=== PATIENT | male | born 1940 | race African-American/Black ===

== ENCOUNTER → 2016-06-11 | Day surgery (SDC) | payer MEDICARE, OTHER ==
[2016-02-05 11:00] VITALS: BP 141/80
[~2016-06-11] VITALS: Ht 182.9 cm; Wt 48.5 kg
[~2016-06-11] MED LIST: ALPR1TAB6 PO; AMIT25TA PO; AMOX1TAB61 PO; ASCO500C PO; ASPI-482 PO; ASPI325T4 PO; ATOR40TA59 PO; BUME2TAB PO; Bumetanide PO; CAPT12.52 PO; CARV3.12 PO; CARV6.25 PO; CARV6.252 PO; CLOP75TA27 PO; COLL30OI TP; FERR-26 PO; FURO20TA3 PO; GABA300C8 PO; HYDR-2666 PO; HYDROmorphone 2 MG/ML VIAL IV PRN; IPRA3AMP NEB; IV RINGERS,LACTATED 1000ML 1,000 ML IV SCH; LACT-128 PO; LACT1CAP2 PO; LIDOCAINE 1% 1 ML SYRINGE. ID PRN; LISI10TA2 PO; LISI40TA PO; LORA1TAB PO; MIRT15TA PO; MORPHINE SULFATE 2 MG/ML DISP.SYRIN. IV PRN; ONDANSETRON PF 4 MG/2 ML VIAL. IV PRN; PHEN300C4 PO; PROCHLORPERAZINE 10 MG/2 ML VIAL. IV PRN; SENN1TAB7 PO; SIMV80TA3 PO; TAMS0.4C2 PO; WARF4TAB68 PO; fentaNYL PF VIAL 100 MCG/2 ML VIAL IV PRN
[2016-06-11 09:51] LABS: INR 2.4 (0.8-1.1); PROTHROMBIN TIME PATIENT 24.4 SEC (11.7-14.0)
== END | disposition home or self-care (01) ==
LOC: SURG 08:56 → OPSVCIP 08:56 → UNDOADMIN 08:56 → EDSTATUS 06-17 11:30
PROVIDERS: ATTEND Specialist
DX: I73.9 Peripheral vascular disease, unspecified (principal); Z53.8 Procedure and treatment not carried out for other reasons; E78.00 Pure hypercholesterolemia, unspecified; I10 Essential (primary) hypertension; J44.9 Chronic obstructive pulmonary disease, unspecified; F32.9 Major depressive disorder, single episode, unspecified; D64.9 Anemia, unspecified; Z86.14 Personal history of Methicillin resistant Staphylococcus aureus infection; Z83.3 Family history of diabetes mellitus; Z82.49 Family history of ischemic heart disease and other diseases of the circulatory system
CPT/HCPCS: 36415; 85610; 87641; J0690; J7040

== ENCOUNTER 2016-06-18 10:48 | Inpatient (IN) | payer MEDICARE, OTHER ==
[~2016-06-18] VITALS: Ht 182.9 cm; Wt 68.0 kg
[2016-06-18 11:46] LABS: INR 1.4 (0.8-1.1); PROTHROMBIN TIME PATIENT 16.1 SEC (11.7-14.0)
--- NOTE | 2016-06-18 13:15 | HP ---
ADMIT DATE: 06/18/2016 DIAGNOSIS: Nonhealable left lower extremity. HISTORY OF PRESENT ILLNESS: A 76-year-old male status post right below-knee amputation remotely. His evaluation at that time showed severe bilateral lower extremity peripheral vascular disease. He was seen in the office recently with constant left foot pain and wounds in his left foot. He is nonambulatory. He is admitted for left above knee amputation. PAST MEDICAL HISTORY AND MEDICATIONS: See his reconciliation list. He does take aspirin daily and Coumadin, which was discontinued. He is scheduled for surgery last week, but the protime was still too high. PAST SURGICAL HISTORY: Prior operations, the ____ right toe amputation and right ____ knee amputation that did not heal. ALLERGIES: No known allergies. ILLNESSES: Coronary artery disease, hyperlipidemia, and hypertension. He has had a history of stroke as well and peripheral vascular disease. PHYSICAL EXAMINATION: GENERAL: Thin, frail black male in some distress from foot pain. HEART: He has regular heart rate, nonlabored respirations. EXTREMITIES: He has a well-healed right above knee amputation site. He has got ulcers around his left ankle and left first toe and a cool left foot. IMPRESSION: Nonhealable left lower extremity. PLAN: Left above knee amputation. The nature of that procedure and the risks were explained and he is agreeable to proceed. GABO GUDINO MD DR: LUIS MIGUEL/shad JOB#: [id number] / [id number]
[2016-06-18] MEDS ORDERED: PROPOFOL 20 ML IV ONE (13:33)
[2016-06-18] MEDS ORDERED: FAMOTIDINE 20 MG/2 ML VIAL ONE (13:33)
[2016-06-18] MEDS ORDERED: ONDANSETRON PF 4 MG/2 ML VIAL. ONE (13:33)
[2016-06-18] MEDS ORDERED: fentaNYL PF VIAL 100 MCG/2 ML VIAL ONE (13:36)
[2016-06-18] MEDS ORDERED: IV RINGERS,LACTATED 1000ML 1,000 ML IV SCH (13:37)
[2016-06-18] MEDS ORDERED: PROCHLORPERAZINE 10 MG/2 ML VIAL. IV PRN (13:45)
[2016-06-18] MEDS ORDERED: MORPHINE SULFATE 2 MG/ML DISP.SYRIN. IV PRN (13:45)
[2016-06-18] MEDS ORDERED: fentaNYL PF VIAL 100 MCG/2 ML VIAL IV PRN ×2 (13:45)
[2016-06-18] MEDS ORDERED: HYDROmorphone 2 MG/ML VIAL IV PRN (13:45)
[2016-06-18] MEDS ORDERED: LIDOCAINE 1% 1 ML SYRINGE. ID PRN (13:45)
[2016-06-18] MEDS ORDERED: ONDANSETRON PF 4 MG/2 ML VIAL. IV PRN ×2 (13:45→15:30)
[2016-06-18] MEDS ORDERED: ETOMIDATE 20 MG/10 ML VIAL. IV ONE (13:54)
[2016-06-18] MEDS ORDERED: ePHEDrine PF IN SALINE 50 MG/5 ML DISP.SYRIN IV ONE (14:07)
[2016-06-18] MEDS ORDERED: SEVOFLURANE 61 TO 120 MINUTES. IH ONE (14:37)
--- NOTE | 2016-06-18 15:17 | PDOC ---
BRIEF OPERATIVE NOTE Date: June 18, 2016 Pre-Op Diagnosis Non healable lt foot/PVD Post-Op Diagnosis Same Procedure Performed Lt AK amp Surgeon Ester Yuan Anesthesia Type: General Blood Loss 100 Specimens Obtained lt lower leg Complications none GABO YUAN MD June 18, 2016 15:17
[2016-06-18] MEDS ORDERED: MAGNESIUM HYDROXIDE 2,400 MG/30 ML ORAL.SUSP. PO PRN (15:30)
[2016-06-18] MEDS ORDERED: MAG HYDROX/ALUMINUM HYD/SIMETH 30 ML ORAL.SUSP PO PRN (15:30)
[2016-06-18] MEDS ORDERED: 0.9 % SODIUM CHLORIDE 10 ML DISP.SYRIN. IV PRN (15:30)
[2016-06-18] MEDS ORDERED: diphenhydrAMINE HCL 25 MG CAPSULE PO PRN (15:30)
[2016-06-18] MEDS ORDERED: NALOXONE 0.4 MG/ML VIAL. IV PRN (15:30)
[2016-06-18] MEDS ORDERED: CALCIUM CARBONATE 500 MG TAB.CHEW PO PRN (15:30)
[2016-06-18] MEDS ORDERED: diphenhydrAMINE 50 MG/ML VIAL IV PRN (15:30)
[2016-06-18] MEDS ORDERED: ZOLPIDEM 5 MG TABLET. PO PRN (15:30)
[2016-06-18] MEDS: IPRATRPIUM/ALBUTEROL 0.5/2.5MG 3 ML NEBU. NEB SCH ×2 (16:00→20:00)
--- NOTE | 2016-06-18 16:31 | OP ---
DATE OF SURGERY: 06/18/2016 PREOPERATIVE DIAGNOSIS: Nonhealing left lower extremity vascular disease. POSTOPERATIVE DIAGNOSIS: Nonhealing left lower extremity vascular disease. PROCEDURE PERFORMED: Left above-knee amputation. SURGEON: Gabo Yuan MD. ANESTHETIC: General. DESCRIPTION OF PROCEDURE: After general endotracheal anesthetic, prepping and draping, a fish-mouth type incision was made just above the knee. This was carried down through the fascia and the subcutaneous tissue with cautery and crossing veins divided between Hemoclips. The fascia was circumferentially divided. The anterior muscle compartments, fascia, and tendons were divided down to the femur. The femur was then ____ with the periosteal elevator and divided. The posterior vascular structures were clamped, divided, and then the rest of the soft tissue was cut off with a knife removing the leg. Bleeding was then controlled with 2-0 Vicryl suture ligatures including the clamp vessels. Some additional cautery or Hemoclips. Once hemostasis was obtained, the bone had to be cut back a little bit further. ____ used to smooth the edges. The incision was irrigated once more, then closed with interrupted Vicryl and running nylon for the skin. Sterile dressings were applied. He tolerated the procedure well and left operating room in stable condition. ESTIMATED BLOOD LOSS: 100 mL. GABO YUAN MD DR: LUIS MIGUEL/shad JOB#: [id number] / [id number]
[2016-06-18] MEDS: IV NORMAL SALINE 1000ML BAG 1,000 ML IV SCH (18:16)
[2016-06-18] MEDS: CARVEDILOL 3.125 MG TABLET. PO SCH (18:17)
[2016-06-18] MEDS: MORPHINE SULFATE 2 MG/ML DISP.SYRIN. IV PRN (18:18)
[2016-06-18 18:39] VITALS: BP 100/64
[2016-06-18 19:05] VITALS: BP 98/63
[2016-06-18] MEDS: ATORVASTATIN CALCIUM 40 MG TABLET. PO SCH (21:37)
[2016-06-18] MEDS: LORazepam 1 MG TABLET PO SCH (21:37)
[2016-06-18] MEDS: SENNOSIDES/DOCUSATE 8.6/50MG TABLET. PO SCH (21:38)
[2016-06-18] MEDS: GABAPENTIN 300 MG CAPSULE. PO SCH (21:38)
[2016-06-18] MEDS: MIRTAZAPINE 15 MG TABLET PO SCH (21:38)
[2016-06-18] MEDS: oxyCODONE/APAP 5/325 1 TAB TABLET PO PRN (21:38)
[2016-06-18 23:14] VITALS: BP 97/62
[2016-06-19] MEDS: MORPHINE SULFATE 2 MG/ML DISP.SYRIN. IV PRN ×2 (00:48→06:13)
[2016-06-19 03:06] VITALS: BP 100/73
[2016-06-19] MEDS: IV NORMAL SALINE 250ML 250 ML IV ONE (06:15)
[2016-06-19 07:00] VITALS: BP 107/58
[2016-06-19] MEDS: IPRATRPIUM/ALBUTEROL 0.5/2.5MG 3 ML NEBU. NEB SCH ×4 (08:00→19:45)
[2016-06-19] MEDS ORDERED: COLLAGENASE 250 UNIT/GM TOPICAL OINTMENT 30GM TUBE. TP SCH (09:00)
--- NOTE | 2016-06-19 09:07 | PDOC ---
SURGICAL PROGRESS NOTE Subjective He notes some discomfort on the buttock. Minimal incisional pain. Vital Signs Vital Signs Date Time Temp Pulse Resp B/P (MAP) Pulse Ox O2 Delivery O2 Flow Rate FiO2 06/19/16 07:00 98.3 89 20 107/58 (74) 90 Room Air 98.3 06/19/16 01:18 10.0 I&O Intake and Output 06/19/16 07:00 Intake Total 865 ml Output Total 275 ml Balance 590 ml Intake Oral 265 ml IV Total 600 ml Output Urine Total 175 ml Estimated Blood Loss 100 ml General: No acute distress Heart: Regular rate Abdomen: Soft, No tenderness Extremities: Other (dressing over the left AKA stump) Assessment/Plan s/p Left AKA for non-healing ulcer PVD previous CVA Will have PCP assist with general medical care. Labs pending today. PT/OT Problems: THELMA HANKS MD June 19, 2016 09:07
[2016-06-19 10:23] LABS: CALCIUM 9.1 mg/dL (8.5-10.1); CREATININE 1.2 mg/dL (0.7-1.3); GFR 71.4
[2016-06-19] MEDS: IV NORMAL SALINE 1000ML BAG 1,000 ML IV SCH ×2 (10:43→23:02)
[2016-06-19 10:51] LABS: HEMOGLOBIN 8.9 g/dL (13.0-17.5); RED BLOOD COUNT 3.04 x10^6/uL (4.30-5.70); RED CELL DISTRIBUTION WIDTH 19.6 % (11.5-14.5); WHITE BLOOD COUNT 7.4 x10^3/uL (4.0-11.0)
[2016-06-19 11:00] VITALS: BP 108/67
[2016-06-19] MEDS: CLOPIDOGREL BISULFATE 75 MG TABLET PO SCH (11:14)
[2016-06-19] MEDS: CARVEDILOL 3.125 MG TABLET. PO SCH ×2 (11:15→17:11)
[2016-06-19] MEDS: ASPIRIN ENTERIC COATED 81 MG TABLET.DR. PO SCH (11:15)
[2016-06-19] MEDS: LORazepam 1 MG TABLET PO SCH ×3 (11:16→21:47)
[2016-06-19] MEDS: FERROUS SULFATE 325 MG TABLET. PO SCH (11:16)
[2016-06-19] MEDS: BUMETANIDE 1 MG TABLET. PO SCH ×2 (11:16→15:25)
[2016-06-19] MEDS: TAMSULOSIN 0.4 MG CAP.ER.24H. PO SCH (11:17)
[2016-06-19] MEDS: GABAPENTIN 300 MG CAPSULE. PO SCH ×3 (11:17→21:47)
[2016-06-19] MEDS: LISINOPRIL 2.5 MG TABLET PO SCH (11:18)
[2016-06-19] MEDS: SENNOSIDES/DOCUSATE 8.6/50MG TABLET. PO SCH ×2 (11:18→21:47)
[2016-06-19] MEDS: oxyCODONE/APAP 5/325 1 TAB TABLET PO PRN ×2 (11:19→21:47)
[2016-06-19] MEDS: ENOXAPARIN 40 MG/0.4 ML SYRINGE. SQ SCH (13:02)
[2016-06-19 15:00] VITALS: BP 136/60
[2016-06-19] MEDS: WARFARIN 4 MG TABLET. PO SCH (15:26)
[2016-06-19 19:00] VITALS: BP 98/55
[2016-06-19] MEDS: MIRTAZAPINE 15 MG TABLET PO SCH (21:47)
[2016-06-19] MEDS: ATORVASTATIN CALCIUM 40 MG TABLET. PO SCH (21:47)
[2016-06-19 23:09] VITALS: BP 108/69
[2016-06-20 03:20] VITALS: BP 116/70
[2016-06-20 06:27] LABS: INR 1.4 (0.8-1.1); PROTHROMBIN TIME PATIENT 16.2 SEC (11.7-14.0)
[2016-06-20] MEDS: IPRATRPIUM/ALBUTEROL 0.5/2.5MG 3 ML NEBU. NEB SCH ×4 (06:55→18:16)
[2016-06-20 07:00] VITALS: BP 119/64
[2016-06-20] MEDS: CLOPIDOGREL BISULFATE 75 MG TABLET PO SCH (08:31)
[2016-06-20] MEDS: CARVEDILOL 3.125 MG TABLET. PO SCH ×2 (08:32→16:13)
[2016-06-20] MEDS: ASPIRIN ENTERIC COATED 81 MG TABLET.DR. PO SCH (08:33)
[2016-06-20] MEDS: FERROUS SULFATE 325 MG TABLET. PO SCH (08:33)
[2016-06-20] MEDS: LORazepam 1 MG TABLET PO SCH ×2 (08:33→14:00)
[2016-06-20] MEDS: TAMSULOSIN 0.4 MG CAP.ER.24H. PO SCH (08:34)
[2016-06-20] MEDS: GABAPENTIN 300 MG CAPSULE. PO SCH ×3 (08:34→19:43)
[2016-06-20] MEDS: BUMETANIDE 1 MG TABLET. PO SCH ×2 (08:34→14:33)
[2016-06-20] MEDS: SENNOSIDES/DOCUSATE 8.6/50MG TABLET. PO SCH ×2 (08:35→19:43)
[2016-06-20] MEDS: LISINOPRIL 2.5 MG TABLET PO SCH (08:35)
[2016-06-20] MEDS: ENOXAPARIN 40 MG/0.4 ML SYRINGE. SQ SCH (08:35)
--- NOTE | 2016-06-20 09:03 | CONS ---
DATE OF CONSULTATION: 06/19/2016 REASON FOR CONSULTATION: Medical management of low urine output and chronic medical issues. HISTORY OF PRESENT ILLNESS AND HOSPITAL COURSE: This patient is a 76-year-old -[place] male who was markedly debilitated, was admitted for elective left above the knee amputation for a non-healing lower extremity wounds and severe peripheral vascular disease. He underwent amputation without complications and postop day #1, did have some low urine output, which resolved with fluid bolus and 1 liter of IV fluids. The patient is tolerating diet well and plans to monitor blood pressure with fluids status and urine output. We will continue the patient's urgent laboratory, revealed a stable hemoglobin of 8.9, BUN of 34, and creatinine of 1.2; otherwise unremarkable labs. PAST MEDICAL HISTORY: Significant for cerebrovascular accident, congestive heart failure, chronic kidney disease, COPD, tobacco abuse, right BKA and left AKA. Postop day #1, the patient chronically resides ____ care facility and is minimally mobile. FAMILY HISTORY: Significant for mother who had a heart attack, diabetes and ongoing heart disease; a brother with diabetes and hypertension. SOCIAL HISTORY: The patient is a former smoker, has not smoked now for 10 months, does not use alcohol. ALLERGIES: The patient has no known drug allergies. REVIEW OF SYSTEMS: The patient was in his usual state of health until elected BKA. MEDICATIONS: On last visit included: Carvedilol 3.125 mg p.o. b.i.d., Flomax 0.4 mg b.i.d., lisinopril 20 mg daily, Megace 40 mg daily, Movantik 25 mg daily, ____ 300 mg at bedtime, Xanax 1 mg 3 times a day, Zocor 80 mg daily, aspirin 325 mg daily, and Plavix 75 mg daily. Current hospitalization include medications of Coumadin 4 mg daily, lisinopril 2.5 mg daily, Bumex 2 mg b.i.d., tamsulosin 0.4 mg daily, Lovenox subq daily, iron sulfate 325 mg daily, aspirin 81 mg daily, Plavix 75 mg daily, Remeron 15 mg at bedtime, Ativan 1 mg t.i.d., Neurontin 300 mg t.i.d., atorvastatin 40 mg daily, senna 1 tablet b.i.d., Coreg 3.125 b.i.d., DuoNeb treatments q. 6 hours, Zofran 4 mg daily, milk of magnesia q.12h. p.r.n., morphine 2 mg IV p.r.n. q.1 hour, Percocet 5 mg one q.4h. p.r.n., Ambien 5 mg at bedtime, and oxycodone immediate release q. 3h. p.r.n. PHYSICAL EXAMINATION: GENERAL: This is a thin -[place] male, who was alert and oriented without significant complaint on my exam. HEENT: Reveals poor dentition. NECK: Supple. CARDIAC: Regular rate and rhythm. Grade 2/3 systolic ejection murmur. LUNGS: Clear. ABDOMEN: Soft, nontender. EXTREMITIES: Revealed AKA on left, BKA on right with well-dressed wound on left. ASSESSMENT: 1. Status post above-knee amputation left. 2. Mild hypovolemia with poor urine output. PLAN: To proceed with IV fluids and monitor the patient's chronic medical illnesses and manage postoperative care once discharge is achieved. GABO KING MD DR: DEBI/shad JOB#: [id number] / [id number]
[2016-06-20] MEDS: oxyCODONE/APAP 5/325 1 TAB TABLET PO PRN ×2 (10:38→19:43)
[2016-06-20 10:46] VITALS: BP 96/52
--- NOTE | 2016-06-20 12:39 | PDOC ---
PROGRESS NOTES Subjective Subjective Patient improved. U.O. reported to be back at baseline. Objective Objective Vital Signs Date Time Temp Pulse Resp B/P (MAP) Pulse Ox O2 Delivery O2 Flow Rate FiO2 06/20/16 11:38 20 93 Room Air 06/20/16 10:46 98.3 84 96/52 (67) 98.3 06/19/16 01:18 10.0 Intake and Output 06/20/16 07:00 Intake Total 240 ml Output Total 575 ml Balance -335 ml Intake Oral 240 ml Output Urine Total 575 ml # Voids 9 Physical Exam Abdomen: Normal bowel sounds Extremities: Other (Left AKA dressed) General: Alert Lungs: Clear to auscultation Assessment Assessment AKA left POD#2 Hx of cerebrovascular accident, Hx of congestive heart failure, chronic kidney disease, COPD, tobacco abuse, right BKA resides alf care facility and is minimally mobile. Plan Plan of Care Discharge if stable in AM to [place] Comment Review of Relevant I have reviewed the following items kristina (where applicable) has been applied. Labs Laboratory Tests Test 06/19/16 09:30 06/20/16 05:35 White Blood Count 7.4 x10^3/uL (4.0-11.0) Red Blood Count 3.04 x10^6/uL (4.30-5.70) Hemoglobin 8.9 g/dL (13.0-17.5) Hematocrit 27.0 % (39.0-53.0) Mean Corpuscular Volume 89 fL (79-100) Mean Corpuscular Hemoglobin 29 pg (25-35) Mean Corpuscular Hemoglobin Concent 33 g/dL (31-37) Red Cell Distribution Width 19.6 % (11.5-14.5) Platelet Count 209 x10^3/uL (140-400) Sodium Level 138 mmol/L (136-145) Potassium Level 4.0 mmol/L (3.5-5.1) Chloride Level 103 mmol/L (98-107) Carbon Dioxide Level 31 mmol/L (21-32) Anion Gap 4 (6-14) Blood Urea Nitrogen 34 mg/dL (8-26) Creatinine 1.2 mg/dL (0.7-1.3) Estimated GFR (Cockcroft-Gault) 71.4 Glucose Level 109 mg/dL (70-99) Calcium Level 9.1 mg/dL (8.5-10.1) Prothrombin Time 16.2 SEC (11.7-14.0) Prothromb Time International Ratio 1.4 (0.8-1.1) Laboratory Tests Test 06/20/16 05:35 Prothrombin Time 16.2 SEC (11.7-14.0) Prothromb Time International Ratio 1.4 (0.8-1.1) Medications Current Medications Cefazolin Sodium 1 gm/Sodium Chloride 500 ml @ 500 mls/hr 1X PERIOP ONCE IRR Last administered on 06/18/16 14:09; Start 06/18/16 at 08:00; Stop 06/18/16 at 08: 59; Status DC Ondansetron HCl (Zofran) 4 mg PRN Q6HRS PRN IV NAUSEA/VOMITING; Start 06/18/16 at 07:00; Stop 06/18/16 at 18:00; Status DC Fentanyl Citrate (Fentanyl 2ml Vial) 25 mcg PRN Q5MIN PRN IV MILD PAIN; Start 06/18/16 at 07:00; Stop 06/18/16 at 18:00; Status DC Fentanyl Citrate (Fentanyl 2ml Vial) 50 mcg PRN Q5MIN PRN IV MODERATE PAIN; Start 06/18/16 at 07:00; Stop 06/18/16 at 18:00; Status DC Morphine Sulfate 1 mg PRN Q10MIN PRN IV SEVERE PAIN; Start 06/18/16 at 07:00; Stop 06/18/16 at 18:00; Status DC Ringer's Solution 1,000 ml @ 30 mls/hr Q24H IV Last administered on 06/18/16 11:56; Start 06/18/16 at 07:00; Stop 06/18/16 at 18:59; Status DC Lidocaine HCl 2 ml PRN 1X PRN ID PRIOR TO IV START; Start 06/18/16 at 07:00; Stop 06/18/16 at 18:00; Status DC Hydromorphone HCl (Dilaudid) 0.5 mg PRN Q10MIN PRN IV SEV PAIN, Second choice; Start 06/18/16 at 07:00; Stop 06/18/16 at 18:00; Status DC Prochlorperazine Edisylate (Compazine) 5 mg PACU PRN PRN IV NAUSEA, MRX1; Start 06/18/16 at 07:00; Stop 06/18/16 at 18:00; Status DC Cefazolin Sodium/ Dextrose 50 ml @ 100 mls/hr 1X PREOP PRN IV PRIOR TO PROCEDURE Last administered on 06/18/16t 14:08; Start 06/18/16 at 06:00; Stop 06/18 at 18:00; Status DC Propofol 20 ml @ As Directed STK-MED ONCE IV ; Start 06/18/16 at 13:33; Stop 06/18 at 13:34; Status DC Famotidine (Pepcid) 20 mg STK-MED ONCE .ROUTE ; Start 06/18/16 at 13:33; Stop 06/18/16 at 13:34; Status DC Ondansetron HCl (Zofran) 4 mg STK-MED ONCE .ROUTE ; Start 06/18/16 at 13:33; Stop 06/18/16 at 13:34; Status DC Fentanyl Citrate (Fentanyl 2ml Vial) 100 mcg STK-MED ONCE .ROUTE ; Start at 13:36; Stop 06/18/16 at 13:37; Status DC Ondansetron HCl (Zofran) 4 mg PRN Q6HRS PRN IV NAUSEA/VOMITING; Start 06/18/16 at 13:45; Stop 06/19/16 at 13:44; Status DC Fentanyl Citrate (Fentanyl 2ml Vial) 25 mcg PRN Q5MIN PRN IV MILD PAIN; Start 06/18/16 at 13:45; Stop 06/19/16 at 13:44; Status DC Fentanyl Citrate (Fentanyl 2ml Vial) 50 mcg PRN Q5MIN PRN IV MODERATE PAIN; Start 06/18/16 at 13:45; Stop 06/19/16 at 13:44; Status DC Morphine Sulfate 1 mg PRN Q10MIN PRN IV SEVERE PAIN; Start 06/18/16 at 13:45; Stop 06/19/16 at 13:44; Status DC Ringer's Solution 1,000 ml @ 0 mls/hr Q0M IV ; Start 06/18/16 at 13:37; Stop 06/19/16 at 01:36; Status DC Lidocaine HCl 2 ml PRN 1X PRN ID PRIOR TO IV START; Start 06/18/16 at 13:45; Stop 06/19/16 at 13:44; Status DC Hydromorphone HCl (Dilaudid) 0.5 mg PRN Q10MIN PRN IV SEV PAIN, Second choice; Start 06/18/16 at 13:45; Stop 06/19/16 at 13:44; Status DC Prochlorperazine Edisylate (Compazine) 5 mg PACU PRN PRN IV NAUSEA, MRX1; Start 06/18/16 at 13:45; Stop 06/19/16 at 13:44; Status DC Etomidate (Amidate) 20 mg STK-MED ONCE IV ; Start 06/18/16 at 13:54; Stop at 13:55; Status DC Ephedrine Sulfate 50 mg STK-MED ONCE IV ; Start 06/18/16 at 14:07; Stop 06/18/16 at 14:08; Status DC Sevoflurane (Ultane) 60 ml STK-MED ONCE IH ; Start 06/18/16 at 14:37; Stop at 14:38; Status DC Oxycodone HCl (Roxicodone) 5 mg PRN Q3HRS PRN PO PAIN; Start 06/18/16 at 15:30 Al Hydroxide/Mg Hydroxide (Mylanta Plus Xs) 30 ml PRN Q3HRS PRN PO HEARTBURN / GAS; Start 06/18/16 at 15:30 Calcium Carbonate/ Glycine (Tums) 500 mg PRN Q3HRS PRN PO INDIGESTION; Start at 15:30 Diphenhydramine HCl (Benadryl) 25 mg PRN Q6HRS PRN PO ITCHING; Start 06/18/16 at 15:30 Diphenhydramine HCl (Benadryl) 25 mg PRN Q6HRS PRN IV ITCHING; Start 06/18/16 at 15:30 Zolpidem Tartrate (Ambien) 5 mg PRN QHS PRN PO INSOMNIA; Start 06/18/16 at 15:30 Naloxone HCl (Narcan) 0.1 mg PRN Q2MIN PRN IV ADMIN; Start 06/18/16 at 15:30 Enoxaparin Sodium (Lovenox 40mg Syringe) 40 mg DAILY SQ Last administered on t 08:35; Start 06/19/16 at 09:00 Sodium Chloride (Normal Saline Flush) 3 ml QSHIFT PRN IV AFTER MEDS AND BLOOD DRAWS; Start 06/18/16 at 15:30 Sodium Chloride 1,000 ml @ 85 mls/hr [id number] IV Last administered on 06/19/16 10:43; Start 06/18/16 at 15:17; Stop 06/19/16 at 23:31; Status DC Oxycodone/ Acetaminophen (Percocet 5/325) 1 tab PRN Q4HRS PRN PO MILD PAIN, 1ST CHOICE Last administered on 06/20/16 10:38; Start 06/18/16 at 15:30 Morphine Sulfate 2 mg PRN Q1HR PRN IV PAIN Last administered on 06/19/16 06:13 ; Start 06/18/16 at 15:30 Senna/Docusate Sodium (Senna Plus) 1 tab BID PO Last administered on 06/20/16 08:35; Start 06/18/16 at 21:00 Magnesium Hydroxide (Milk Of Magnesia) 2,400 mg PRN Q12HR PRN PO CONSTIPATION; Start 06/18/16 at 15:30 Ondansetron HCl (Zofran) 4 mg PRN Q6HRS PRN IV NAUESA, 1ST CHOICE; Start at 15:30 Cefazolin Sodium 1 gm/Sodium Chloride 50 ml @ 100 mls/hr Q6H IV Last administered on 06/19/16 10:43; Start 06/18/16 at 20:00; Stop 06/19/16 at 08:29; Status DC Aspirin (Ecotrin) 81 mg DAILY08 PO Last administered on 06/20/16 08:33; Start 06/19/16 at 08:00 Atorvastatin Calcium (Lipitor) 40 mg QHS PO Last administered on 06/19/16 21:47 ; Start 06/18/16 at 21:00 Carvedilol (Coreg) 3.125 mg BIDWMEALS PO Last administered on 06/20/16 08:32; Start 06/18/16 at 17:00 Clopidogrel Bisulfate (Plavix) 75 mg DAILY07 PO Last administered on 06/20/16 08:31; Start 06/19/16 at 07:00 Collagenase (Santyl) 1 veronica DAILY TP ; Start 06/19/16 at 09:00; Status UNV Ferrous Sulfate (Feosol) 325 mg DAILY08 PO Last administered on 06/20/16 08:33 ; Start 06/19/16 at 08:00 Gabapentin (Neurontin) 300 mg TID PO Last administered on 06/20/16 08:34; Start 06/18/16 at 21:00 Albuterol/ Ipratropium (Duoneb) 3 ml RTQID NEB Last administered on 06/20/16 06 :55; Start 06/18/16 at 16:00 Lorazepam (Ativan) 1 mg TID PO Last administered on 06/19/16 21:47; Start at 21:00 Mirtazapine (Remeron) 15 mg QHS PO Last administered on 06/19/16 21:47; Start 06/18/16 at 21:00 Tamsulosin HCl (Flomax) 0.4 mg DAILY PO Last administered on 06/20/16 08:34; Start 06/19/16 at 09:00 Warfarin Sodium (Coumadin) 4 mg DAILY16 PO Last administered on 06/19/16 15:26 ; Start 06/19/16 at 16:00 Bumetanide (Bumex) 2 mg BID92 PO Last administered on 06/20/16 08:34; Start 06/19/16 at 09:00 Lisinopril (Prinivil) 2.5 mg DAILY PO Last administered on 06/20/16 08:35; Start 06/19/16 at 09:00 Warfarin Sodium (Coumadin Per Physician) 1 each PRN DAILY PRN MC SEE COMMENTS Last administered on 06/19/16 12:59; Start 06/18/16 at 17:00 Sodium Chloride 250 ml @ 250 mls/hr 1X ONCE IV ; Start 06/19/16 at 06:15; Stop 06/19/16 at 07:14; Status DC Active Scripts Active Duoneb 0.5-3(2.5) Mg/3 Ml (Albuterol/Ipratropium) 3 Ml Ampul.neb 3 Ml NEB RTQID Reported Coumadin (Warfarin Sodium) 4 Mg Tablet 1 Tab PO DAILY Coreg (Carvedilol) 3.125 Mg Tablet 1 Tab PO BID Santyl Ointment (Collagenase) 30 Gm Oint...g. 1 Veronica TP DAILY DIRECTED BY PHYSICIAN Bumetanide 2 Mg Tablet 1 Tab PO BID Acidophilus (Lactobacillus Acidophilus) 1 Each Capsule 1 Each PO BID Ensure Enlive (Lactose-Reduced Food) 237 Ml Liquid 237 Ml PO DAILY Ferrous Sulfate 325 Mg Tablet 1 Tab PO DAILY Vitamin C (Ascorbic Acid) 500 Mg Capsule.er 500 Mg PO DAILY Captopril 12.5 Mg Tablet 12.5 Mg PO DAILY Remeron (Mirtazapine) 15 Mg Tablet 1 Tab PO QHS Lorazepam 1 Mg Tablet 1 Tab PO TID Aspir 81 (Aspirin) 81 Mg Tablet.dr 1 Tab PO DAILY Senna-Docusate Sodium Tablet (Sennosides/Docusate Sodium) 1 Each Tablet 2 Each PO PRN PRN Atorvastatin Calcium 40 Mg Tablet 40 Mg PO QHS Tamsulosin Hcl 0.4 Mg Cap.er.24h 0.4 Mg PO DAILY Gabapentin 300 Mg Capsule 300 Mg PO TID Plavix (Clopidogrel Bisulfate) 75 Mg Tablet 1 Tab PO DAILY Vitals/I & O Vital Sign - Last 24 Hours 06/19/16 06/19/16 06/19/16 06/19/16 15:00 15:02 17:11 19:00 Temp 98.7 99.1 98.7 99.1 Pulse 81 81 83 Resp 20 16 B/P (MAP) 136/60 (85) 136/60 98/55 (69) Pulse Ox 96 94 92 O2 Delivery Room Air Room Air Room Air 06/19/16 06/19/16 06/19/16 06/19/16 19:44 20:00 21:47 23:09 Temp 98.8 98.8 Pulse 85 Resp 20 18 B/P (MAP) 108/69 (82) Pulse Ox 92 92 91 O2 Delivery Room Air Room Air Room Air Room Air 06/20/16 06/20/16 06/20/16 06/20/16 03:20 06:55 07:00 08:00 Temp 99.5 97.8 99.5 97.8 Pulse 90 82 Resp 18 22 B/P (MAP) 116/70 (85) 119/64 (82) Pulse Ox 92 100 100 O2 Delivery Room Air Room Air Room Air Room Air 5/7/17 5/7/17 5/7/17 5/7/17 08:32 08:35 10:38 10:46 Temp 98.3 98.3 Pulse 82 82 84 Resp 20 20 B/P (MAP) 119/64 119/64 96/52 (67) Pulse Ox 92 93 O2 Delivery Room Air 06/20/16 06/20/16 10:51 11:38 Resp 20 Pulse Ox 93 O2 Delivery Room Air Room Air Intake and Output 06/19/16 06/19/16 06/20/16 15:00 23:00 07:00 Intake Total 240 ml 0 ml Output Total 200 ml 275 ml 100 ml Balance -200 ml -35 ml -100 ml GABO KING MD June 20, 2016 12:39
--- NOTE | 2016-06-20 13:15 | PDOC ---
SURGICAL PROGRESS NOTE Subjective He is without complaints. Vital Signs Vital Signs Date Time Temp Pulse Resp B/P (MAP) Pulse Ox O2 Delivery O2 Flow Rate FiO2 06/20/16 11:38 20 93 Room Air 06/20/16 10:46 98.3 84 96/52 (67) 98.3 I&O Intake and Output 06/20/16 07:00 Intake Total 240 ml Output Total 575 ml Balance -335 ml Intake Oral 240 ml Output Urine Total 575 ml # Voids 9 General: Alert, No acute distress Extremities: Other (left leg incision intact, no edema, dressing changed) Assessment/Plan s/p Left AKA Previous right AKA Previous CVA PT/OT. Work toward d/c. Consult Associate Attorney in AM. Problems: THELMA HANKS MD June 20, 2016 13:15
[2016-06-20 14:36] VITALS: BP 106/68
[2016-06-20] MEDS: WARFARIN 4 MG TABLET. PO SCH (16:13)
[2016-06-20 19:05] VITALS: BP 102/58
[2016-06-20] MEDS: ATORVASTATIN CALCIUM 40 MG TABLET. PO SCH (19:43)
[2016-06-20] MEDS: MIRTAZAPINE 15 MG TABLET PO SCH (19:43)
[2016-06-20 23:18] VITALS: BP 111/57
[2016-06-20] MEDS ORDERED: LORazepam 1 MG TABLET PO PRN (23:45)
[2016-06-21] MEDS: oxyCODONE/APAP 5/325 1 TAB TABLET PO PRN ×3 (02:28→17:40)
[2016-06-21 03:24] VITALS: BP 104/64
[2016-06-21] MEDS: oxyCODONE IR 5 MG TABLET PO PRN ×3 (05:46→21:17)
[2016-06-21] MEDS: CLOPIDOGREL BISULFATE 75 MG TABLET PO SCH (05:46)
[2016-06-21 07:00] VITALS: BP 86/52
[2016-06-21] MEDS: IPRATRPIUM/ALBUTEROL 0.5/2.5MG 3 ML NEBU. NEB SCH ×4 (07:26→19:14)
[2016-06-21] MEDS: FERROUS SULFATE 325 MG TABLET. PO SCH (08:04)
[2016-06-21] MEDS: ENOXAPARIN 40 MG/0.4 ML SYRINGE. SQ SCH (08:04)
[2016-06-21] MEDS: LISINOPRIL 2.5 MG TABLET PO SCH (08:05)
[2016-06-21] MEDS: TAMSULOSIN 0.4 MG CAP.ER.24H. PO SCH (08:05)
[2016-06-21] MEDS: GABAPENTIN 300 MG CAPSULE. PO SCH ×3 (08:05→21:17)
[2016-06-21] MEDS: BUMETANIDE 1 MG TABLET. PO SCH ×2 (08:05→14:25)
[2016-06-21] MEDS: CARVEDILOL 3.125 MG TABLET. PO SCH ×2 (08:06→17:00)
[2016-06-21] MEDS: SENNOSIDES/DOCUSATE 8.6/50MG TABLET. PO SCH ×2 (08:06→21:17)
[2016-06-21] MEDS: ASPIRIN ENTERIC COATED 81 MG TABLET.DR. PO SCH (08:06)
[2016-06-21 11:00] VITALS: BP 92/51
--- NOTE | 2016-06-21 13:06 | PDOC ---
PROGRESS NOTES Subjective Subjective No medical issues, having some pain though, ROS negative Objective Objective Vital Signs Date Time Temp Pulse Resp B/P (MAP) Pulse Ox O2 Delivery O2 Flow Rate FiO2 06/21/16 11:14 97 Room Air 06/21/16 11:00 98.3 79 20 92/51 (65) 98.3 06/19/16 01:18 10.0 Intake and Output 06/21/16 06:59 Intake Total 1820 ml Output Total 525 ml Balance 1295 ml Intake Oral 1820 ml Output Urine Total 525 ml # Voids 3 # Bowel Movements 2 Physical Exam Abdomen: Normal bowel sounds, Soft Heart: Regular rate Extremities: No clubbing, No cyanosis General: Alert HEENT: Atraumatic Lungs: Clear to auscultation Neuro: Normal speech Psych/Mental Status: Mental status NL Skin: No breakdown Assessment Assessment Post op left AKA, medically stable after having reduced urine output earlier, awaiting disposition, continue pain control Comment Review of Relevant I have reviewed the following items kristina (where applicable) has been applied. Labs Laboratory Tests Test 06/20/16 05:35 Prothrombin Time 16.2 SEC (11.7-14.0) Prothromb Time International Ratio 1.4 (0.8-1.1) Medications Current Medications Cefazolin Sodium 1 gm/Sodium Chloride 500 ml @ 500 mls/hr 1X PERIOP ONCE IRR Last administered on 06/18/16t 14:09; Start 06/18/16 at 08:00; Stop 06/18/16 at 08: 59; Status DC Ondansetron HCl (Zofran) 4 mg PRN Q6HRS PRN IV NAUSEA/VOMITING; Start 06/18/16 at 07:00; Stop 06/18/16 at 18:00; Status DC Fentanyl Citrate (Fentanyl 2ml Vial) 25 mcg PRN Q5MIN PRN IV MILD PAIN; Start 06/18/16 at 07:00; Stop 06/18/16 at 18:00; Status DC Fentanyl Citrate (Fentanyl 2ml Vial) 50 mcg PRN Q5MIN PRN IV MODERATE PAIN; Start 06/18/16 at 07:00; Stop 06/18/16 at 18:00; Status DC Morphine Sulfate 1 mg PRN Q10MIN PRN IV SEVERE PAIN; Start 06/18/16 at 07:00; Stop 06/18/16 at 18:00; Status DC Ringer's Solution 1,000 ml @ 30 mls/hr Q24H IV Last administered on 06/18/16 11:56; Start 06/18/16 at 07:00; Stop 06/18/16 at 18:59; Status DC Lidocaine HCl 2 ml PRN 1X PRN ID PRIOR TO IV START; Start 06/18/16 at 07:00; Stop 06/18/16 at 18:00; Status DC Hydromorphone HCl (Dilaudid) 0.5 mg PRN Q10MIN PRN IV SEV PAIN, Second choice; Start 06/18/16 at 07:00; Stop 06/18/16 at 18:00; Status DC Prochlorperazine Edisylate (Compazine) 5 mg PACU PRN PRN IV NAUSEA, MRX1; Start 06/18/16 at 07:00; Stop 06/18/16 at 18:00; Status DC Cefazolin Sodium/ Dextrose 50 ml @ 100 mls/hr 1X PREOP PRN IV PRIOR TO PROCEDURE Last administered on 06/18/16 14:08; Start 06/18/16 at 06:00; Stop 06/18 at 18:00; Status DC Propofol 20 ml @ As Directed STK-MED ONCE IV ; Start 06/18/16 at 13:33; Stop 06/18 at 13:34; Status DC Famotidine (Pepcid) 20 mg STK-MED ONCE .ROUTE ; Start 06/18/16 at 13:33; Stop 06/18/16 at 13:34; Status DC Ondansetron HCl (Zofran) 4 mg STK-MED ONCE .ROUTE ; Start 06/18/16 at 13:33; Stop 06/18/16 at 13:34; Status DC Fentanyl Citrate (Fentanyl 2ml Vial) 100 mcg STK-MED ONCE .ROUTE ; Start at 13:36; Stop 06/18/16 at 13:37; Status DC Ondansetron HCl (Zofran) 4 mg PRN Q6HRS PRN IV NAUSEA/VOMITING; Start 06/18/16 at 13:45; Stop 06/19/16 at 13:44; Status DC Fentanyl Citrate (Fentanyl 2ml Vial) 25 mcg PRN Q5MIN PRN IV MILD PAIN; Start 06/18/16 at 13:45; Stop 06/19/16 at 13:44; Status DC Fentanyl Citrate (Fentanyl 2ml Vial) 50 mcg PRN Q5MIN PRN IV MODERATE PAIN; Start 06/18/16 at 13:45; Stop 06/19/16 at 13:44; Status DC Morphine Sulfate 1 mg PRN Q10MIN PRN IV SEVERE PAIN; Start 06/18/16 at 13:45; Stop 06/19/16 at 13:44; Status DC Ringer's Solution 1,000 ml @ 0 mls/hr Q0M IV ; Start 06/18/16 at 13:37; Stop 06/19/16 at 01:36; Status DC Lidocaine HCl 2 ml PRN 1X PRN ID PRIOR TO IV START; Start 06/18/16 at 13:45; Stop 06/19/16 at 13:44; Status DC Hydromorphone HCl (Dilaudid) 0.5 mg PRN Q10MIN PRN IV SEV PAIN, Second choice; Start 06/18/16 at 13:45; Stop 06/19/16 at 13:44; Status DC Prochlorperazine Edisylate (Compazine) 5 mg PACU PRN PRN IV NAUSEA, MRX1; Start 06/18/16 at 13:45; Stop 06/19/16 at 13:44; Status DC Etomidate (Amidate) 20 mg STK-MED ONCE IV ; Start 06/18/16 at 13:54; Stop at 13:55; Status DC Ephedrine Sulfate 50 mg STK-MED ONCE IV ; Start 06/18/16 at 14:07; Stop 06/18/16 at 14:08; Status DC Sevoflurane (Ultane) 60 ml STK-MED ONCE IH ; Start 06/18/16 at 14:37; Stop at 14:38; Status DC Oxycodone HCl (Roxicodone) 5 mg PRN Q3HRS PRN PO PAIN Last administered on t 05:46; Start 06/18/16 at 15:30 Al Hydroxide/Mg Hydroxide (Mylanta Plus Xs) 30 ml PRN Q3HRS PRN PO HEARTBURN / GAS; Start 06/18/16 at 15:30 Calcium Carbonate/ Glycine (Tums) 500 mg PRN Q3HRS PRN PO INDIGESTION; Start at 15:30 Diphenhydramine HCl (Benadryl) 25 mg PRN Q6HRS PRN PO ITCHING; Start 06/18/16 at 15:30 Diphenhydramine HCl (Benadryl) 25 mg PRN Q6HRS PRN IV ITCHING; Start 06/18/16 at 15:30 Zolpidem Tartrate (Ambien) 5 mg PRN QHS PRN PO INSOMNIA; Start 06/18/16 at 15:30 Naloxone HCl (Narcan) 0.1 mg PRN Q2MIN PRN IV ADMIN; Start 06/18/16 at 15:30 Enoxaparin Sodium (Lovenox 40mg Syringe) 40 mg DAILY SQ Last administered on 08:04; Start 06/19/16 at 09:00 Sodium Chloride (Normal Saline Flush) 3 ml QSHIFT PRN IV AFTER MEDS AND BLOOD DRAWS; Start 06/18/16 at 15:30 Sodium Chloride 1,000 ml @ 85 mls/hr [id number] IV Last administered on 06/19/16 10:43; Start 06/18/16 at 15:17; Stop 06/19/16 at 23:31; Status DC Oxycodone/ Acetaminophen (Percocet 5/325) 1 tab PRN Q4HRS PRN PO MILD PAIN, 1ST CHOICE Last administered on 06/21/16 08:04; Start 06/18/16 at 15:30 Morphine Sulfate 2 mg PRN Q1HR PRN IV PAIN Last administered on 06/19/16 06:13 ; Start 06/18/16 at 15:30 Senna/Docusate Sodium (Senna Plus) 1 tab BID PO Last administered on 06/20/16 08:35; Start 06/18/16 at 21:00 Magnesium Hydroxide (Milk Of Magnesia) 2,400 mg PRN Q12HR PRN PO CONSTIPATION; Start 06/18/16 at 15:30 Ondansetron HCl (Zofran) 4 mg PRN Q6HRS PRN IV NAUESA, 1ST CHOICE; Start at 15:30 Cefazolin Sodium 1 gm/Sodium Chloride 50 ml @ 100 mls/hr Q6H IV Last administered on 06/19/16 10:43; Start 06/18/16 at 20:00; Stop 06/19/16 at 08:29; Status DC Aspirin (Ecotrin) 81 mg DAILY08 PO Last administered on 06/21/16 08:06; Start 06/19/16 at 08:00 Atorvastatin Calcium (Lipitor) 40 mg QHS PO Last administered on 06/20/16 19:43 ; Start 06/18/16 at 21:00 Carvedilol (Coreg) 3.125 mg BIDWMEALS PO Last administered on 06/21/16 08:06; Start 06/18/16 at 17:00 Clopidogrel Bisulfate (Plavix) 75 mg DAILY07 PO Last administered on 06/21/16 05:46; Start 06/19/16 at 07:00 Collagenase (Santyl) 1 veronica DAILY TP ; Start 06/19/16 at 09:00; Status UNV Ferrous Sulfate (Feosol) 325 mg DAILY08 PO Last administered on 06/21/16 08:04 ; Start 06/19/16 at 08:00 Gabapentin (Neurontin) 300 mg TID PO Last administered on 06/21/16 08:05; Start 06/18/16 at 21:00 Albuterol/ Ipratropium (Duoneb) 3 ml RTQID NEB Last administered on 06/21/16 11 :13; Start 06/18/16 at 16:00 Lorazepam (Ativan) 1 mg TID PO Last administered on 06/19/16 21:47; Start at 21:00; Stop 06/20/16 at 14:07; Status DC Mirtazapine (Remeron) 15 mg QHS PO Last administered on 06/20/16 19:43; Start 06/18/16 at 21:00 Tamsulosin HCl (Flomax) 0.4 mg DAILY PO Last administered on 06/21/16 08:05; Start 06/19/16 at 09:00 Warfarin Sodium (Coumadin) 4 mg DAILY16 PO Last administered on 06/20/16 16:13 ; Start 06/19/16 at 16:00 Bumetanide (Bumex) 2 mg BID92 PO Last administered on 06/21/16 08:05; Start 06/19/16 at 09:00 Lisinopril (Prinivil) 2.5 mg DAILY PO Last administered on 06/21/16 08:05; Start 06/19/16 at 09:00 Warfarin Sodium (Coumadin Per Physician) 1 each PRN DAILY PRN MC SEE COMMENTS Last administered on 06/21/16 12:29; Start 06/18/16 at 17:00 Sodium Chloride 250 ml @ 250 mls/hr 1X ONCE IV ; Start 06/19/16 at 06:15; Stop 06/19/16 at 07:14; Status DC Lorazepam (Ativan) 1 mg PRN TID PRN PO ANXIETY / AGITATION; Start 06/21/16 at 14 :00; Stop 06/21/16 at 14:00; Status DC Lorazepam (Ativan) 1 mg PRN TID PRN PO ANXIETY / AGITATION; Start 06/20/16 at 23 :45 Active Scripts Active Duoneb 0.5-3(2.5) Mg/3 Ml (Albuterol/Ipratropium) 3 Ml Ampul.neb 3 Ml NEB RTQID Reported Coumadin (Warfarin Sodium) 4 Mg Tablet 1 Tab PO DAILY Coreg (Carvedilol) 3.125 Mg Tablet 1 Tab PO BID Santyl Ointment (Collagenase) 30 Gm Oint...g. 1 Veronica TP DAILY DIRECTED BY PHYSICIAN Bumetanide 2 Mg Tablet 1 Tab PO BID Acidophilus (Lactobacillus Acidophilus) 1 Each Capsule 1 Each PO BID Ensure Enlive (Lactose-Reduced Food) 237 Ml Liquid 237 Ml PO DAILY Ferrous Sulfate 325 Mg Tablet 1 Tab PO DAILY Vitamin C (Ascorbic Acid) 500 Mg Capsule.er 500 Mg PO DAILY Captopril 12.5 Mg Tablet 12.5 Mg PO DAILY Remeron (Mirtazapine) 15 Mg Tablet 1 Tab PO QHS Lorazepam 1 Mg Tablet 1 Tab PO TID Aspir 81 (Aspirin) 81 Mg Tablet.dr 1 Tab PO DAILY Senna-Docusate Sodium Tablet (Sennosides/Docusate Sodium) 1 Each Tablet 2 Each PO PRN PRN Atorvastatin Calcium 40 Mg Tablet 40 Mg PO QHS Tamsulosin Hcl 0.4 Mg Cap.er.24h 0.4 Mg PO DAILY Gabapentin 300 Mg Capsule 300 Mg PO TID Plavix (Clopidogrel Bisulfate) 75 Mg Tablet 1 Tab PO DAILY Vitals/I & O Vital Sign - Last 24 Hours 06/20/16 06/20/16 06/20/16 06/20/16 14:36 15:17 16:13 18:18 Temp 97.6 97.6 Pulse 78 78 Resp 20 B/P (MAP) 106/68 (81) 106/68 Pulse Ox 96 O2 Delivery Room Air Room Air Room Air 06/20/16 06/20/16 06/20/16 06/20/16 19:05 19:11 19:43 23:18 Temp 97.6 98.6 97.6 98.6 Pulse 79 51 Resp 16 20 18 B/P (MAP) 102/58 (73) 111/57 (75) Pulse Ox 97 96 95 O2 Delivery Room Air Room Air Room Air Room Air 06/21/16 06/21/16 06/21/16 06/21/16 02:28 03:24 03:28 05:46 Temp 100.6 100.6 Pulse 80 Resp 20 18 20 20 B/P (MAP) 104/64 (77) Pulse Ox 95 97 97 97 O2 Delivery Room Air Room Air Room Air 06/21/16 06/21/16 06/21/16 06/21/16 06:46 07:00 07:27 08:00 Temp 97.5 97.5 Pulse 81 Resp 20 20 B/P (MAP) 86/52 (63) Pulse Ox 97 94 97 O2 Delivery Room Air Room Air Room Air Room Air 06/21/16 06/21/16 06/21/16 06/21/16 08:04 08:05 08:06 09:20 Pulse 80 80 B/P (MAP) 104/64 104/64 O2 Delivery Room Air Room Air 06/21/16 06/21/16 11:00 11:14 Temp 98.3 98.3 Pulse 79 Resp 20 B/P (MAP) 92/51 (65) Pulse Ox 97 97 O2 Delivery Room Air Room Air Intake and Output 06/20/16 06/20/16 06/21/16 14:59 22:59 06:59 Intake Total 1300 ml 460 ml 60 ml Output Total 300 ml 225 ml Balance 1000 ml 235 ml 60 ml BRITNEY RODRÍGUEZ MD June 21, 2016 13:05
[2016-06-21] MEDS ORDERED: LORazepam 1 MG TABLET PO PRN (14:00)
[2016-06-21 15:00] VITALS: BP 97/62
--- NOTE | 2016-06-21 15:16 | PDOC ---
Provider Note Provider Note VASCULAR POD#3 amputation site looks good, incision intact and well perfused IMP: doing well KARLOS: d/c plans f/u with Dr Yuan in 3 weeks([phone]) JORGE RILEY MD June 21, 2016 15:16
--- NOTE | 2016-06-21 15:17 | DISCH ---
DISCHARGE CONDITION ON DISCHARGE: Stable POST DISCHARGE ORDERS ACTIVITY ORDERS: Activity as tolerated WEIGHT BEARING STATUS: As tolerated DIET AFTER DISCHARGE: Cardiac WOUND/INCISION CARE: Other, see below (dry gauze dressing daily) CHECKS AFTER DISCHARGE CHECKS AFTER DISCHARGE: Check blood press - daily, Weigh Yourself Daily FOLLOW-UP PHYSICIAN FOLLOW-UP: Dr. Yuan 07/05/2016 2:00 TREATMENT/EQUIPMENT ORDERS ADAPTIVE EQUIPMENT NEEDED: None RESPIRATORY EQUIPMENT NEEDED: Oxygen FIFI JACKMAN APRN June 21, 2016 15:16
[2016-06-21] MEDS: WARFARIN 4 MG TABLET. PO SCH (17:40)
[2016-06-21 19:00] VITALS: BP 114/57
[2016-06-21] MEDS: ATORVASTATIN CALCIUM 40 MG TABLET. PO SCH (21:17)
[2016-06-21] MEDS: MIRTAZAPINE 15 MG TABLET PO SCH (21:17)
[2016-06-21 23:28] VITALS: BP 128/59
[2016-06-22 03:24] VITALS: BP 106/64
[2016-06-22 04:04] LABS: INR 1.4 (0.8-1.1); PROTHROMBIN TIME PATIENT 16.6 SEC (11.7-14.0)
[2016-06-22] MEDS: oxyCODONE IR 5 MG TABLET PO PRN (05:22)
[2016-06-22] MEDS: CLOPIDOGREL BISULFATE 75 MG TABLET PO SCH (06:34)
[2016-06-22 07:00] VITALS: BP 97/76
[2016-06-22] MEDS: IPRATRPIUM/ALBUTEROL 0.5/2.5MG 3 ML NEBU. NEB SCH (07:06)
[2016-06-22] MEDS: CARVEDILOL 3.125 MG TABLET. PO SCH ×2 (08:00→08:50)
[2016-06-22] MEDS: BUMETANIDE 1 MG TABLET. PO SCH (08:50)
[2016-06-22] MEDS: GABAPENTIN 300 MG CAPSULE. PO SCH (08:50)
[2016-06-22] MEDS: SENNOSIDES/DOCUSATE 8.6/50MG TABLET. PO SCH (08:50)
[2016-06-22] MEDS: ASPIRIN ENTERIC COATED 81 MG TABLET.DR. PO SCH (08:51)
[2016-06-22] MEDS: FERROUS SULFATE 325 MG TABLET. PO SCH (08:51)
[2016-06-22] MEDS: TAMSULOSIN 0.4 MG CAP.ER.24H. PO SCH (08:51)
[2016-06-22] MEDS: ENOXAPARIN 40 MG/0.4 ML SYRINGE. SQ SCH (08:51)
[2016-06-22] MEDS: oxyCODONE/APAP 5/325 1 TAB TABLET PO PRN (08:52)
[2016-06-22 08:53] VITALS: BP 97/76
[2016-06-22] MEDS: LISINOPRIL 2.5 MG TABLET PO SCH (08:53)
--- NOTE | 2016-06-22 09:05 | PDOC ---
PROGRESS NOTES Subjective Subjective Pain controlled, no chest pain, no SOA, last BM 2 days ago, urinating well. Accepted back at [facility] but they were unable to accept him yesterday. He had a 100.1 temp this am but no cough or infectious symptoms so suspect atelectasis Objective Objective Vital Signs Date Time Temp Pulse Resp B/P (MAP) Pulse Ox O2 Delivery O2 Flow Rate FiO2 06/22/16 08:53 92 97/76 06/22/16 08:52 Room Air 06/22/16 07:08 98 06/22/16 07:00 100.1 20 100.1 06/19/16 01:18 10.0 Intake and Output 06/22/16 07:00 Intake Total 195 ml Output Total 400 ml Balance -205 ml Intake Oral 195 ml Output Urine Total 400 ml # Voids 3 Physical Exam Abdomen: Normal bowel sounds, Soft Heart: Regular rate General: Alert, Oriented X3, Cooperative Lungs: Clear to auscultation Neck: Supple Neuro: Normal speech Psych/Mental Status: Mental status NL Skin: No breakdown Assessment Assessment s/p left AKA Plan Plan of Care meds reconciled with nursing, discharge today Comment Review of Relevant I have reviewed the following items kristina (where applicable) has been applied. Labs Laboratory Tests Test 06/22/16 03:25 Prothrombin Time 16.6 SEC (11.7-14.0) Prothromb Time International Ratio 1.4 (0.8-1.1) Laboratory Tests Test 06/22/16 03:25 Prothrombin Time 16.6 SEC (11.7-14.0) Prothromb Time International Ratio 1.4 (0.8-1.1) Medications Current Medications Cefazolin Sodium 1 gm/Sodium Chloride 500 ml @ 500 mls/hr 1X PERIOP ONCE IRR Last administered on 06/18/16t 14:09; Start 06/18/16 at 08:00; Stop 06/18/16 at 08: 59; Status DC Ondansetron HCl (Zofran) 4 mg PRN Q6HRS PRN IV NAUSEA/VOMITING; Start 06/18/16 at 07:00; Stop 06/18/16 at 18:00; Status DC Fentanyl Citrate (Fentanyl 2ml Vial) 25 mcg PRN Q5MIN PRN IV MILD PAIN; Start 06/18/16 at 07:00; Stop 06/18/16 at 18:00; Status DC Fentanyl Citrate (Fentanyl 2ml Vial) 50 mcg PRN Q5MIN PRN IV MODERATE PAIN; Start 06/18/16 at 07:00; Stop 06/18/16 at 18:00; Status DC Morphine Sulfate 1 mg PRN Q10MIN PRN IV SEVERE PAIN; Start 06/18/16 at 07:00; Stop 06/18/16 at 18:00; Status DC Ringer's Solution 1,000 ml @ 30 mls/hr Q24H IV Last administered on 06/18/16 11:56; Start 06/18/16 at 07:00; Stop 06/18/16 at 18:59; Status DC Lidocaine HCl 2 ml PRN 1X PRN ID PRIOR TO IV START; Start 06/18/16 at 07:00; Stop 06/18/16 at 18:00; Status DC Hydromorphone HCl (Dilaudid) 0.5 mg PRN Q10MIN PRN IV SEV PAIN, Second choice; Start 06/18/16 at 07:00; Stop 06/18/16 at 18:00; Status DC Prochlorperazine Edisylate (Compazine) 5 mg PACU PRN PRN IV NAUSEA, MRX1; Start 06/18/16 at 07:00; Stop 06/18/16 at 18:00; Status DC Cefazolin Sodium/ Dextrose 50 ml @ 100 mls/hr 1X PREOP PRN IV PRIOR TO PROCEDURE Last administered on 06/18/16 14:08; Start 06/18/16 at 06:00; Stop 06/18 at 18:00; Status DC Propofol 20 ml @ As Directed STK-MED ONCE IV ; Start 06/18/16 at 13:33; Stop 06/18 at 13:34; Status DC Famotidine (Pepcid) 20 mg STK-MED ONCE .ROUTE ; Start 06/18/16 at 13:33; Stop 06/18/16 at 13:34; Status DC Ondansetron HCl (Zofran) 4 mg STK-MED ONCE .ROUTE ; Start 06/18/16 at 13:33; Stop 06/18/16 at 13:34; Status DC Fentanyl Citrate (Fentanyl 2ml Vial) 100 mcg STK-MED ONCE .ROUTE ; Start at 13:36; Stop 06/18/16 at 13:37; Status DC Ondansetron HCl (Zofran) 4 mg PRN Q6HRS PRN IV NAUSEA/VOMITING; Start 06/18/16 at 13:45; Stop 06/19/16 at 13:44; Status DC Fentanyl Citrate (Fentanyl 2ml Vial) 25 mcg PRN Q5MIN PRN IV MILD PAIN; Start 06/18/16 at 13:45; Stop 06/19/16 at 13:44; Status DC Fentanyl Citrate (Fentanyl 2ml Vial) 50 mcg PRN Q5MIN PRN IV MODERATE PAIN; Start 06/18/16 at 13:45; Stop 06/19/16 at 13:44; Status DC Morphine Sulfate 1 mg PRN Q10MIN PRN IV SEVERE PAIN; Start 06/18/16 at 13:45; Stop 06/19/16 at 13:44; Status DC Ringer's Solution 1,000 ml @ 0 mls/hr Q0M IV ; Start 06/18/16 at 13:37; Stop 06/19/16 at 01:36; Status DC Lidocaine HCl 2 ml PRN 1X PRN ID PRIOR TO IV START; Start 06/18/16 at 13:45; Stop 06/19/16 at 13:44; Status DC Hydromorphone HCl (Dilaudid) 0.5 mg PRN Q10MIN PRN IV SEV PAIN, Second choice; Start 06/18/16 at 13:45; Stop 06/19/16 at 13:44; Status DC Prochlorperazine Edisylate (Compazine) 5 mg PACU PRN PRN IV NAUSEA, MRX1; Start 06/18/16 at 13:45; Stop 06/19/16 at 13:44; Status DC Etomidate (Amidate) 20 mg STK-MED ONCE IV ; Start 06/18/16 at 13:54; Stop at 13:55; Status DC Ephedrine Sulfate 50 mg STK-MED ONCE IV ; Start 06/18/16 at 14:07; Stop 06/18/16 at 14:08; Status DC Sevoflurane (Ultane) 60 ml STK-MED ONCE IH ; Start 06/18/16 at 14:37; Stop at 14:38; Status DC Oxycodone HCl (Roxicodone) 5 mg PRN Q3HRS PRN PO PAIN Last administered on 05:22; Start 06/18/16 at 15:30 Al Hydroxide/Mg Hydroxide (Mylanta Plus Xs) 30 ml PRN Q3HRS PRN PO HEARTBURN / GAS; Start 06/18/16 at 15:30 Calcium Carbonate/ Glycine (Tums) 500 mg PRN Q3HRS PRN PO INDIGESTION; Start at 15:30 Diphenhydramine HCl (Benadryl) 25 mg PRN Q6HRS PRN PO ITCHING; Start 06/18/16 at 15:30 Diphenhydramine HCl (Benadryl) 25 mg PRN Q6HRS PRN IV ITCHING; Start 06/18/16 at 15:30 Zolpidem Tartrate (Ambien) 5 mg PRN QHS PRN PO INSOMNIA; Start 06/18/16 at 15:30 Naloxone HCl (Narcan) 0.1 mg PRN Q2MIN PRN IV ADMIN; Start 06/18/16 at 15:30 Enoxaparin Sodium (Lovenox 40mg Syringe) 40 mg DAILY SQ Last administered on 08:51; Start 06/19/16 at 09:00 Sodium Chloride (Normal Saline Flush) 3 ml QSHIFT PRN IV AFTER MEDS AND BLOOD DRAWS; Start 06/18/16 at 15:30 Sodium Chloride 1,000 ml @ 85 mls/hr [id number] IV Last administered on 06/19/16 10:43; Start 06/18/16 at 15:17; Stop 06/19/16 at 23:31; Status DC Oxycodone/ Acetaminophen (Percocet 5/325) 1 tab PRN Q4HRS PRN PO MILD PAIN, 1ST CHOICE Last administered on 06/22/16 08:52; Start 06/18/16 at 15:30 Morphine Sulfate 2 mg PRN Q1HR PRN IV PAIN Last administered on 06/19/16 06:13 ; Start 06/18/16 at 15:30 Senna/Docusate Sodium (Senna Plus) 1 tab BID PO Last administered on 06/22/16 08:50; Start 06/18/16 at 21:00 Magnesium Hydroxide (Milk Of Magnesia) 2,400 mg PRN Q12HR PRN PO CONSTIPATION; Start 06/18/16 at 15:30 Ondansetron HCl (Zofran) 4 mg PRN Q6HRS PRN IV NAUESA, 1ST CHOICE; Start at 15:30 Cefazolin Sodium 1 gm/Sodium Chloride 50 ml @ 100 mls/hr Q6H IV Last administered on 06/19/16 10:43; Start 06/18/16 at 20:00; Stop 06/19/16 at 08:29; Status DC Aspirin (Ecotrin) 81 mg DAILY08 PO Last administered on 06/22/16 08:51; Start 06/19/16 at 08:00 Atorvastatin Calcium (Lipitor) 40 mg QHS PO Last administered on 06/21/16 21:17 ; Start 06/18/16 at 21:00 Carvedilol (Coreg) 3.125 mg BIDWMEALS PO Last administered on 06/21/16 08:06; Start 06/18/16 at 17:00 Clopidogrel Bisulfate (Plavix) 75 mg DAILY07 PO Last administered on 06/22/16 06:34; Start 06/19/16 at 07:00 Collagenase (Santyl) 1 veronica DAILY TP ; Start 06/19/16 at 09:00; Status UNV Ferrous Sulfate (Feosol) 325 mg DAILY08 PO Last administered on 06/22/16 08:51 ; Start 06/19/16 at 08:00 Gabapentin (Neurontin) 300 mg TID PO Last administered on 06/22/16 08:50; Start 06/18/16 at 21:00 Albuterol/ Ipratropium (Duoneb) 3 ml RTQID NEB Last administered on 06/22/16 07 :06; Start 06/18/16 at 16:00 Lorazepam (Ativan) 1 mg TID PO Last administered on 06/19/16 21:47; Start at 21:00; Stop 06/20/16 at 14:07; Status DC Mirtazapine (Remeron) 15 mg QHS PO Last administered on 06/21/16 21:17; Start 06/18/16 at 21:00 Tamsulosin HCl (Flomax) 0.4 mg DAILY PO Last administered on 06/22/16 08:51; Start 06/19/16 at 09:00 Warfarin Sodium (Coumadin) 4 mg DAILY16 PO Last administered on 06/21/16 17:40 ; Start 06/19/16 at 16:00 Bumetanide (Bumex) 2 mg [id number] PO Last administered on 06/22/16 08:50; Start 06/19/16 at 09:00 Lisinopril (Prinivil) 2.5 mg DAILY PO Last administered on 06/21/16 08:05; Start 06/19/16 at 09:00 Warfarin Sodium (Coumadin Per Physician) 1 each PRN DAILY PRN MC SEE COMMENTS Last administered on 06/21/16 12:29; Start 06/18/16 at 17:00 Sodium Chloride 250 ml @ 250 mls/hr 1X ONCE IV ; Start 06/19/16 at 06:15; Stop 06/19/16 at 07:14; Status DC Lorazepam (Ativan) 1 mg PRN TID PRN PO ANXIETY / AGITATION; Start 06/21/16 at 14 :00; Stop 06/21/16 at 14:00; Status DC Lorazepam (Ativan) 1 mg PRN TID PRN PO ANXIETY / AGITATION; Start 06/20/16 at 23 :45 Active Scripts Active Duoneb 0.5-3(2.5) Mg/3 Ml (Albuterol/Ipratropium) 3 Ml Ampul.neb 3 Ml NEB RTQID Reported Coumadin (Warfarin Sodium) 4 Mg Tablet 1 Tab PO DAILY Coreg (Carvedilol) 3.125 Mg Tablet 1 Tab PO BID Santyl Ointment (Collagenase) 30 Gm Oint...g. 1 Veronica TP DAILY DIRECTED BY PHYSICIAN Bumetanide 2 Mg Tablet 1 Tab PO BID Acidophilus (Lactobacillus Acidophilus) 1 Each Capsule 1 Each PO BID Ensure Enlive (Lactose-Reduced Food) 237 Ml Liquid 237 Ml PO DAILY Ferrous Sulfate 325 Mg Tablet 1 Tab PO DAILY Vitamin C (Ascorbic Acid) 500 Mg Capsule.er 500 Mg PO DAILY Captopril 12.5 Mg Tablet 12.5 Mg PO DAILY Remeron (Mirtazapine) 15 Mg Tablet 1 Tab PO QHS Lorazepam 1 Mg Tablet 1 Tab PO TID Aspir 81 (Aspirin) 81 Mg Tablet.dr 1 Tab PO DAILY Senna-Docusate Sodium Tablet (Sennosides/Docusate Sodium) 1 Each Tablet 2 Each PO PRN PRN Atorvastatin Calcium 40 Mg Tablet 40 Mg PO QHS Tamsulosin Hcl 0.4 Mg Cap.er.24h 0.4 Mg PO DAILY Gabapentin 300 Mg Capsule 300 Mg PO TID Plavix (Clopidogrel Bisulfate) 75 Mg Tablet 1 Tab PO DAILY Vitals/I & O Vital Sign - Last 24 Hours 06/21/16 06/21/16 06/21/16 06/21/16 11:00 11:14 14:26 15:00 Temp 98.3 98.9 98.3 98.9 Pulse 79 81 Resp 20 20 B/P (MAP) 92/51 (65) 97/62 (74) Pulse Ox 97 97 98 O2 Delivery Room Air Room Air Room Air Room Air 06/21/16 06/21/16 06/21/16 06/21/16 15:10 17:00 17:40 19:00 Temp 98.1 98.1 Pulse 81 63 Resp 18 B/P (MAP) 97/62 114/57 (76) Pulse Ox 97 100 O2 Delivery Room Air Room Air Room Air 06/21/16 06/21/16 06/21/16 06/21/16 19:06 19:16 19:30 21:17 Resp 20 Pulse Ox 98 98 O2 Delivery Room Air Room Air Room Air Room Air 06/21/16 06/22/16 06/22/16 06/22/16 23:28 03:24 05:22 06:22 Temp 98.0 99.4 98.0 99.4 Pulse 99 94 Resp 18 18 18 18 B/P (MAP) 128/59 (82) 106/64 (78) Pulse Ox 97 98 98 98 O2 Delivery Room Air Room Air Room Air Room Air 06/22/16 06/22/16 06/22/16 06/22/16 07:00 07:08 08:00 08:52 Temp 100.1 100.1 Pulse 92 92 Resp 20 B/P (MAP) 97/76 (83) 97/76 Pulse Ox 94 98 O2 Delivery Room Air Room Air Room Air 06/22/16 08:53 Pulse 92 B/P (MAP) 97/76 Intake and Output 06/21/16 06/21/16 06/22/16 15:00 23:00 07:00 Intake Total 195 ml Output Total 200 ml 100 ml 100 ml Balance -200 ml -100 ml 95 ml BRITNEY RODRÍGUEZ MD June 22, 2016 09:05
[2016-06-22] MEDS ORDERED: IPRATRPIUM/ALBUTEROL 0.5/2.5MG 3 ML NEBU. NEB ONE (09:30)
--- NOTE | 2016-06-22 17:37 | PATHOLOGY ---
PATHOLOGY REPORT * * * * * * * * FINAL DIAGNOSIS: Left leg [id number]: - Multifocal ulceration, necrosis, and acute inflammation of anterior leg. 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 - Skin and subcutaneous tissue of proximal amputation margin viable. (JPM:; d/t: 06/22/16) REPORT ELECTRONICALLY SIGNED BY: Idris Tavera M.D. DATE/TIME: 06/22/2016 17:22 * * * * * * * * GROSS PATHOLOGY: The specimen is received fresh, labeled "[place] above knee amputation" is an above the knee amputation with attached foot. The leg measures 65.4 cm in length and ranges in diameter from 4.9 cm up to 14.1 cm. The attached foot measures 26.8 x 8.2 x 6.5 cm and displays all 5 digits. The granger brown skin displays multiple ulcerations on the anterior leg ranging in size from 0.6 x 0.4 cm up to 5.7 x 0.9 cm. The closest ulceration to the soft tissue resection margin is 16.2 cm and 17.2 cm from the femur resection margin. The great toe displays multifocal areas of necrosis involving the dorsal and medial surfaces. Sectioning through the specimen reveals multifocal fibrosis adjacent to the ulcerations and great toe. The bone has a pink to red hard trabeculated appearance. Sectioning along the vasculature reveals a yellow-white endothelial lining and atherosclerosis. Section code: A1-neurovascular bundle, A2-perpendicular sections of soft tissue margin closest to ulceration, A3-primary care sales representative sections of ulcerations, A4-represent sections of bone and atherosclerosis submitted after decal. (DRL; 06/21/2016) INITIAL CPT CODE(S): A; 29968, 45973 Professional services performed by [facility] at [address] [address] Technical services performed by [facility] at [address] [place] [address], [address], [place] [address]. SPECIMEN(S) RECEIVED: A.Left above the knee amputation CLINICAL HISTORY: Leg pain with rest; atherosclerosis of [place] arteries of extremities. PATIENT: PANTERA FENG /AGE: 405/24/1940 (Age: 76) PATIENT #: [id number] ALT CASE #: SPECIMEN COLLECTION DATE: 06/18/2016 SPECIMEN RECEIVED DATE: 06/18/2016 [facility] - [id number] [address] - PHONE: [phone] * * * END OF REPORT * * *
== END 2016-06-22 10:10 | DRG 240 ==
LOC: OPSVCIP 10:48 → 4 NORTH 16:41
PROVIDERS: ADMIT Specialist; ATTEND Specialist
PROC: 0Y6D0Z3 Detachment at Left Upper Leg, Low, Open Approach (ICD-10-PCS; principal; 2016-06-18 13:30)
DX: I73.9 Peripheral vascular disease, unspecified (principal); I13.0 Hypertensive heart and chronic kidney disease with heart failure and stage 1 through stage 4 chronic kidney disease, or unspecified chronic kidney disease; E86.1 Hypovolemia; I50.9 Heart failure, unspecified; J44.9 Chronic obstructive pulmonary disease, unspecified; N18.9 Chronic kidney disease, unspecified; Z72.0 Tobacco use; Z79.82 Long term (current) use of aspirin; Z82.49 Family history of ischemic heart disease and other diseases of the circulatory system; Z83.3 Family history of diabetes mellitus; Z86.73 Personal history of transient ischemic attack (TIA), and cerebral infarction without residual deficits; Z89.511 Acquired absence of right leg below knee; Z89.611 Acquired absence of right leg above knee; Z79.899 Other long term (current) drug therapy
CPT/HCPCS: 36415; 80048; 85027; 85610; 85730; 88307; 88311; 94640; 94760; J0690; J1650; J2270; J2405; J2704; J3010; J7030; J7040; J7050; J7120; J7620; S0028